=== PATIENT | female | born 1990 | race Caucasian/White ===

== ENCOUNTER → 2018-08-26 10:19 | Outpatient (CLI) | payer MEDICAID, SELFPAY ==
[2018-08-26 10:24] LABS: Microscopic, Urine URINE MICROSCOPIC (MICROSCOPIC)
[2018-08-26 11:04] LABS: Appearance,Urine CLEAR (Clear); Bilirubin,Urine Negative (Negative); Blood, Urine Negative (Negative); Color,Urine YELLOW (Yellow); Glucose,Urine (UA) Negative (Negative); Ketones,Urine Negative (Negative); Leukocyte Esterase,Urine Negative (Negative); Nitrate,Urine Negative (Negative); Protein,Urine Negative (Negative); Urobilinogen,Urine 0.2 EU/dl (0.2)
[2018-08-26 11:23] LABS: Basophils % 0.5 % (0.1-2.0); Eosinophils # 0.2 K/mm3 (0.0-0.4); Eosinophils % 2.8 % (0.1-12.0); Hematocrit 41.9 % (37.0-47.0); Hemoglobin 14.5 g/dL (12.2-16.2); Lymphocytes # 1.7 K/mm3 (0.7-4.5); Lymphocytes % 20.1 % (10-50); Mean Corpuscular HGB Conc 34.7 g/dL (31.8-35.4); Mean Corpuscular Hemoglobin 32.9 pg (27.0-31.2); Mean Corpuscular Volume 94.8 fl (81-99); Mean Platelet Volume 7.8 fl (7.4-10.4); Monocytes # 0.6 K/mm3 (0.1-1.0); Monocytes % 7.8 % (1.7-9.3); Neutrophils # 5.6 K/mm3 (1.8-7.8); Neutrophils % 68.8 % (37.0-80.0); Platelet Count 266 K/mm3 (142-424); Red Blood Count 4.42 M/mm3 (4.20-5.40); Red Cell Distribution Width 13.1 % (11.5-17.5); White Blood Count 8.2 K/mm3 (4.8-10.8)
[2018-08-26 11:28] LABS: Bacteria,Urine Trace /lpf; Squamous Epithelial Cell,Urine Occasional #/hpf (0-5); WBC,Urine Occasional #/hpf (0-3)
[2018-08-26 12:32] LABS: Alanine Aminotransferase 33 U/L (12-78); Albumin Level 4.3 gm/dL (3.4-5.0); Albumin/Globulin Ratio 1.3 (1.1-1.8); Alkaline Phosphatase 79 U/L (46-116); Anion Gap 13.9 mEq/L (5-15); Aspartate Amino Transferase 13 U/L (15-37); Bilirubin,Total 0.4 mg/dL (0.2-1.0); Blood Urea Nitrogen 10 mg/dL (7-18); Calcium 9.1 mg/dL (8.5-10.1); Carbon Dioxide 28 mmol/L (21.0-32.0); Chloride 104 mmol/L (98-107); Creatinine,Serum 0.77 mg/dL (0.55-1.02); Estimated Glomerular Filt Rate 91 ml/min (>60); GFR (African American) 110 ML/MIN (>60); Globulin 3.3 gm/dl (1.3-3.2); Glucose 88 mg/dL (74-106); Potassium 3.9 mmoL/L (3.5-5.1); Sodium 142 mmol/L (136-145); Total Protein,Serum 7.6 gm/dL (6.4-8.2)
[2018-08-26 15:37] LABS: HCG Qualitative, Serum Negative (Negative)
== END ==
PROVIDERS: Visit Provider Obstetrics & Gynecology
DX: Z01.818 Encounter for other preprocedural examination (principal); Z30.2 Encounter for sterilization
CPT/HCPCS: 36415; 80053; 81001; 84703; 85025

== ENCOUNTER → 2019-10-02 09:50 | Outpatient (CLI) | payer MEDICAID, SELFPAY ==
[2019-10-02 10:14] LABS: Basophils # 0.1 K/mm3 (0-0.2); Basophils % 1.2 % (0.1-2.0); Eosinophils # 0.4 K/mm3 (0.0-0.4); Eosinophils % 4.8 % (0.1-12.0); Hematocrit 43.6 % (37.0-47.0); Hemoglobin 14.8 g/dL (12.2-16.2); Lymphocytes # 1.6 K/mm3 (0.7-4.5); Lymphocytes % 21.9 % (10-50); Mean Corpuscular Hemoglobin 33.3 pg (27.0-31.2); Mean Corpuscular Volume 98.1 fl (81-99); Monocytes # 0.5 K/mm3 (0.1-1.0); Monocytes % 6.6 % (1.7-9.3); Neutrophils # 4.9 K/mm3 (1.8-7.8); Neutrophils % 65.6 % (37.0-80.0); Platelet Count 207 K/mm3 (142-424); Red Blood Count 4.45 M/mm3 (4.20-5.40); Red Cell Distribution Width 13.3 % (11.5-17.5); White Blood Count 7.5 K/mm3 (4.8-10.8)
[2019-10-02 10:43] LABS: Chloride 106 mmol/L (98-107); HCG Qualitative, Serum Negative (Negative); Potassium 4.8 mmoL/L (3.5-5.1); Sodium 141 mmol/L (136-145)
[2019-10-02 10:45] LABS: Alanine Aminotransferase 32 U/L (12-78); Alkaline Phosphatase 63 U/L (38-126); Aspartate Amino Transferase 29 U/L (14-36); Bilirubin,Total 0.7 mg/dl (0.2-1.3); Blood Urea Nitrogen 11 mg/dl (7-17); Estimated Glomerular Filt Rate 86 ml/min (>60); GFR (African American) 104 ML/MIN (>60)
[2019-10-02 10:46] LABS: Albumin Level 4.5 g/dl (3.5-5.0); Albumin/Globulin Ratio 1.7 (1.1-1.8); Anion Gap 13.8 mEq/L (5-15); Calcium 9.7 mg/dl (8.4-10.2); Carbon Dioxide 26 mmol/L (22.0-30.0); Globulin 2.6 g/dL (1.3-3.2); Glucose 63 mg/dl (74-100); Total Protein,Serum 7.1 g/dl (6.3-8.2)
[2019-10-02 11:10] LABS: Coronavirus 19 IgG Antibody Negative (Negative); Coronavirus 19 IgM Antibody Negative (Negative)
== END ==
PROVIDERS: Visit Provider Obstetrics & Gynecology
DX: Z01.818 Encounter for other preprocedural examination (principal)
CPT/HCPCS: 36415; 80053; 84703; 85025; 86328

== ENCOUNTER 2019-10-03 06:33 | Day surgery (SDC) | payer MEDICAID, SELFPAY ==
--- NOTE | 2019-10-01 09:54 | SUR.PREOP ---
10/01/2019 @ 0954--PHONE CALL MADE TO PATIENT. PATIENT UNDERSTANDS THAT LAB WORK AND COVID TESTING NEEDS TO BE COMPLETED @ 945 ON 10/02/2019. PATIENT UNDERSTANDS IF LAB WORK AND COVID-19 TESTS ARE NOT COMPLETED BY 12PM ON THAT DATE, THE SURGERY SCHEDULED WILL BE CANCELLED AND RESCHEDULED FOR ANOTHER TIME.
[2019-10-03] VITALS (16 sets, daily range): BP systolic 108–145; BP diastolic 62–83; PULSE 72–98; RESP 12–19; TEMP 36.2–43; O2SAT 91–98; BMI 33.4
--- NOTE | 2019-10-03 10:02 | P.PN_ITS ---
[facility] Anesthesia Checklist - Structural Data Admitted From: Home Planned Operative Procedure/s: d/c estephanie go Consent for Planned Operative Procedure(s) Verified: Yes - Additional verifications Anesthesia Reactions: No Hx Blood Transfusions: No Blood Transfusion Reaction: No - Airway Assessment C-Spine Mobility Assessed: Yes TMJ Mobility Assessed: Yes Dentition: Good Dentition - Neurological Assessment Level of Consciousness: Awake, Alert, Appropriate - Anesthesia Plan Anesthesia Risk discussed: Yes Anesthesia Plan: Verified ASA Class: II Anesthesia Type: General [facility] History I have reviewed the patient's past medical history: Yes Medical History: Denies:: Cancer, Diabetes Mellitus Type 1, Diabetes Mellitus Type 2, Internal Pacemaker, MRSA, Seizures *Have you ever received a pneumonia vaccine?: No *Have you received a flu vaccine this season?: No Other Medical History: Denies: Blood Transfusion Reaction Anesthesia experience/problems:: none Other Surgeries: Yes: Tubal Ligation. No: Pacemaker Amputation: No Fractures: No - *Social History Educational Level: Completed GED/General Educational Development Smoking Status: Current every day smoker Tobacco Type: cigarettes # Packs/Day (cigarettes): 1 Alcohol Intake: never Alcohol Intake Frequency:: a few times a week Substance Use Type: denies use *Occupational Status:: unemployed Housing: house Household Members: children *Travel in the last 8 weeks: None Family Hx:: Asthma, Diabetes, Kidney Disease
--- NOTE | 2019-10-03 10:47 | HMH.OPNOTE ---
Date of procedure: 10/03/19 Pre-op Diagnosis:: Heavy menstrual bleeding, dysfunctional uterine bleeding, failed medical management with IUD Post-op Diagnosis:: same Procedure performed:: D&C Hysteroscopy, failed novasure endometrial ablation Surgeon:: Faby Sims MD IT OPERATIONS MANAGER:: Tremaine Castillo Anesthesia: GETA Estimated blood loss (mL): 15 Operative findings:: grossly normal endometrium, abnormal cavity shape c/w bicornuate uterus Operative note:: The patient was taken to the operating room and general anesthesia was administered. She was prepped/draped in lithotomy position. The anterior lip of the cervix was grasped with a single tooth tenaculum and the cervix was dilated with Nguyen dilators of serially increasing size until the external os was able to accomodate the Myosure hysteroscope. The hysteroscope was advanced through the cervix and into the uterine cavity, which was distended with LR. Once the uterus was sufficiently distended, the cavity was evaluated and revealed no lesions such as polyps or fibroids, but did seem to have an abnormal shape, consistent with a bicornuate uterus. The hysteroscope was removed from the uterus and endometrial sampling obtained by sharp curettage. The uterine cavity sounded to a length of 5cm. The Novasure was inserted through the cervix and expanded to fit the width of the uterus, with a width of 3.4cm. The cavity assessment was not successful, and the novasure was removed to inspect the uterus with the hysteroscope. No perforations were observed. The novasure was re-introduced into the uterus with a second unsuccessful cavity assessment. The hysteroscope was introduced into the uterus again and no perforations were observed, however the bicornuate appearance of the uterus appeared more pronounced. The hysteroscope was removed from the uterus and all instruments removed from the vagina. The tenaculum site was hemostatic. All sponge/lap/needle/instrument counts correct x2. Total EBL: 15 cc. The patient was taken out of lithotomy position, extubated and taken to the PACU in stable condition. Condition: stable Disposition: PACU Specimens:: endometrial curettings Complications:: failure of novasure to deploy due to cavity assessment
--- NOTE | 2019-10-03 10:54 | HMH.ANESI ---
[facility] Anesthesia Record Part I Intake, IV Amount: 1,500 Estimated blood loss (mL): 10 Urine output (mL): 350 Blood Pressure: 145/75 SaO2: 98 Pulse Rate: 98 Respiratory Rate: 12 Temperature: 98.5 F Patient is:: Awake, Stable Stable to PACU at:: 10:50
--- NOTE | 2019-10-03 17:20 | HMH.ANESII ---
[facility] Anesthesia Record Part II Discharge Time: 11:20 Destination: [facility] PACU nurse assessment reviewed?: Yes Patient Condition:: Good Anesthesia Complications:: None Swallowing reflex intact?: Yes Cyanosis?: No Blood Pressure: 116/63 Pulse Rate: 93 Temperature: 97.4 F Mental Status: Alert & Oriented Pain level:: 6 Nausea and/or vomitting:: None Intake, IV Amount: 1,200
== END 2019-10-03 12:10 | disposition home or self-care (01) ==
LOC: OR 06:34
PROVIDERS: PCP Family Medicine; Visit Provider Obstetrics & Gynecology
PROC: 0U5B8ZZ Destruction of Endometrium, Via Natural or Artificial Opening Endoscopic (ICD-10-PCS; CPT 58563; principal; 2019-10-03 09:00)
DX: N93.8 Other specified abnormal uterine and vaginal bleeding (principal); Q51.3 Bicornate uterus; Z98.51 Tubal ligation status; Z88.0 Allergy status to penicillin; Z72.0 Tobacco use
CPT/HCPCS: 58563; 96374; J2405

== ENCOUNTER → 2019-12-05 10:04 | Outpatient (CLI) | payer MEDICAID, SELFPAY ==
[2019-12-05 10:55] LABS: Basophils # 0.1 K/mm3 (0-0.2); Basophils % 0.7 % (0.1-2.0); Eosinophils # 0.3 K/mm3 (0.0-0.4); Hematocrit 43.8 % (37.0-47.0); Hemoglobin 15.1 g/dL (12.2-16.2); Lymphocytes # 1.7 K/mm3 (0.7-4.5); Lymphocytes % 21.9 % (10-50); Mean Corpuscular HGB Conc 34.5 g/dL (31.8-35.4); Mean Corpuscular Hemoglobin 33.9 pg (27.0-31.2); Mean Corpuscular Volume 98.1 fl (81-99); Mean Platelet Volume 8.6 fl (7.4-10.4); Monocytes # 0.4 K/mm3 (0.1-1.0); Monocytes % 5.1 % (1.7-9.3); Neutrophils # 5.2 K/mm3 (1.8-7.8); Neutrophils % 68.4 % (37.0-80.0); Platelet Count 261 K/mm3 (142-424); Red Blood Count 4.47 M/mm3 (4.20-5.40); Red Cell Distribution Width 13.1 % (11.5-17.5); White Blood Count 7.5 K/mm3 (4.8-10.8)
[2019-12-05 12:08] LABS: Chloride 103 mmol/L (98-107); Sodium 139 mmol/L (136-145)
[2019-12-05 12:09] LABS: Potassium 4.5 mmoL/L (3.5-5.1)
[2019-12-05 12:11] LABS: Alanine Aminotransferase 22 U/L (12-78); Albumin Level 4.4 g/dl (3.5-5.0); Albumin/Globulin Ratio 1.7 (1.1-1.8); Alkaline Phosphatase 57 U/L (38-126); Anion Gap 13.5 mEq/L (5-15); Aspartate Amino Transferase 26 U/L (14-36); Bilirubin,Total 0.4 mg/dl (0.2-1.3); Blood Urea Nitrogen 12 mg/dl (7-17); Carbon Dioxide 27 mmol/L (22.0-30.0); Estimated Glomerular Filt Rate 100 ml/min (>60); GFR (African American) 121 ML/MIN (>60); Globulin 2.6 g/dL (1.3-3.2)
[2019-12-05 12:12] LABS: Calcium 9.4 mg/dl (8.4-10.2); Glucose 73 mg/dl (74-100)
[2019-12-05 12:15] LABS: HCG Qualitative, Serum Negative (Negative)
[2019-12-05 14:23] LABS: Coronavirus 19 IgG Antibody Negative (Negative); Coronavirus 19 IgM Antibody Negative (Negative)
== END ==
PROVIDERS: Visit Provider Obstetrics & Gynecology
DX: Z01.818 Encounter for other preprocedural examination (principal); N92.0 Excessive and frequent menstruation with regular cycle; N93.8 Other specified abnormal uterine and vaginal bleeding; Z98.51 Tubal ligation status
CPT/HCPCS: 36415; 80053; 84703; 85025; 86328

== ENCOUNTER 2019-12-08 12:26 | Observation (INO) | payer MEDICAID, SELFPAY ==
[2019-12-03 13:54] VITALS: BMI 32.4
[2019-12-08] VITALS (29 sets, daily range): BP systolic 99–156; BP diastolic 51–85; PULSE 73–95; RESP 12–20; TEMP 36.3–43; O2SAT 91–100
--- NOTE | 2019-12-08 06:58 | P.PN_ITS ---
[facility] Anesthesia Checklist - Patient Identification Patient Identification: Arm Band, Verbal (Name & ) - Structural Data Admitted From: Home Planned Operative Procedure[facility] Cons[facility] for Planned Operative Procedure(s) Verified: Yes Verified Documents: Surgical Consent - NPO Status Verified Time NPO: 00:00 - Chart Verification Results Verified: CBC, BMP - Additional verifications Patient : No Anesthesia Reactions: No Hx Blood Transfusions: No Blood Transfusion Reaction: No - Airway Assessment C-Spine Mobility Assessed: Yes TMJ Mobility Assessed: Yes Dentition: Good Dentition - Neurological Assessment Level of Consciousness: Awake, Alert, Appropriate, Follows Commands Hx Seizures: No Numbness or tingling in extremities: No - Anesthesia Plan Anesthesia Risk discussed: Yes Anesthesia Plan: Verified ASA Class: II Anesthesia Type: General [facility] History I have reviewed the patient's past medical history: Yes Medical History: Denies:: Cancer, Diabetes Mellitus Type 1, Diabetes Mellitus Type 2, Internal Pacemaker, MRSA, Seizures *Have you ever received a pneumonia vaccine?: No *Have you received a flu vaccine this season?: No Other Medical History: Denies: Blood Transfusion Reaction Comment:: obesity Anesthesia experience/problems:: no prior complications Other Surgeries: Yes: Dilation and Curettage, Tubal Ligation. No: Pacemaker Amputation: No Fractures: No - *Social History Last grade of school completed: Some college Smoking Status: Current every day smoker Tobacco Type: cigarettes # Packs/Day (cigarettes): 1 Alcohol Intake: never Alcohol Intake Frequency:: a few times a week Substance Use Type: denies use *Occupational Status:: unemployed Housing: house Household Members: significant other *Travel in the last 8 weeks: None Family Hx:: Anemia, Asthma, Coronary Artery Disease, Diabetes, Hyperlipidemia, Hypertension, Kidney Disease, Stroke, Thyroid Disorder, Substance abuse
--- NOTE | 2019-12-08 09:44 | SUR.OPER ---
0926-family updated at this time
--- NOTE | 2019-12-08 11:07 | HMH.ANESI ---
[facility] Anesthesia Record Part I Intake, IV Amount: 1,300 Estimated blood loss (mL): 100 Urine output (mL): 200 Blood Products used (#): none Blood Pressure: 133/66 SaO2: 96 Pulse Rate: 89 Respiratory Rate: 16 Temperature: 98.6 F Patient is:: Awake, Stable Stable to PACU at:: 11:03
[2019-12-08 11:12] LABS: Appearance,Urine/Cath CLEAR (Clear); Blood, Urine/Cath TRACE-I (Negative); Color,Urine/Cath YELLOW (Yellow); Glucose,Urine/Cath (UA) Negative (Negative); Ketones,Urine/Cath Negative (Negative); Leukocyte Esterase,Cath Negative (Negative); Nitrate,Cath Negative (Negative); Protein,Urine/Cath TRACE (Negative); Specific Gravity, Urine/Cath >= 1.030 (1.005-1.030); Urobilinogen,Cath 0.2 EU/dl (0.2)
[2019-12-08 11:13] LABS: Microscopic,Cath URINE MICROSCOPIC (MICROSCOPIC)
[2019-12-08 11:16] LABS: Bilirubin,Cath 1+ (Negative)
--- NOTE | 2019-12-08 12:15 | PC.NURSE ---
Pt transported to OB department RN x2 at this time, per Pt bed, bed in lowest position, wheels locked, siderails x2 in place, mask on Pt during transport r/t covid-19 protocol. O2 applied to Pt per nasal cannula 2LPM for low o2 saturation. Pt resating comfortably at this time. 1220 visitor at the bedside
--- NOTE | 2019-12-08 12:17 | P.OP_ITS ---
Date of procedure: 12/08/19 Pre-op Diagnosis:: 1. HMB 2. DUB 3. Failed endometrial ablation Post-op Diagnosis:: same Procedure performed:: Laparoscopic assisted vaginal hysterectomy Surgeon:: Faby Sims MD Webfed Offset Press Operator(s):: Xavi Barcenas MD BEER BREWER:: Parth Nguyen Anesthesia: GETA Estimated blood loss (mL): 100 Operative findings:: grossly normal uterus, fallopian tubes and ovaries Operative note:: The patient was taken to the operating room and general anesthesia was administered without difficulty. She was prepped and draped in lithotomy position. A Humi uterine manipulator was placed and attention turned to the abdomen. The verees needle was inserted through a 11mm umbilical incision and the abdomen was insufflated with CO2 gas. A 11mm trocar was placed under direct visualization without complication. 11mm incisions were made in the right and left lower quadrant and trocars inserted under direct visualization. A 5mm incision was made above the pubic symphisis and a trocar inserted under visualization. The round ligaments were identified and transected. The anterior lip of the broad ligament was dissected medially on both sides and the bladder flap was created digitally. The posterior leaf of the broad ligament was dissected until the ureters were able to be identified on either side and noted to be free of the forthcoming adnexal pedicles. Infundibulopelvic ligaments were transected using the harmonic scalpel on either side, with excellent hemostasis noted. The fallopian tubes on either side were clamped transected and removed; the specimens were set aside for pathology. The uterine arteries were skeletonized on either side, and were clamped/transected using the harmonic scalpel, with excellent hemostasis. The bladder flap was further bluntly dissected off the lower uterine segment with excellent hemostasis and without injury to the bladder. The cardinal and uterosacral ligaments were clamped transected and suture ligated on both sides. At this time, the abdomen was evacuated of gas and instruments removed from the trocars, and attention turned to the vagina. The cervix was grasped and lidocaine 1% with epi was injected for dissection and hemostasis. The cervical mucosa was incised circumferentially with a scalpel and dissected posteriorly until the colpotomy was successfully made in posterior fornix. The anterior colpotomy was then made without complication. The cardinal and uterosacral ligaments were clamped, transected and suture ligated until the uterus as successfully removed. A running, locked 2-0 vicryl was sewn around the posterior vaginal mucosa vaginal mucosa. The peritoneum was closed with 2-0 PDS. The vaginal cuff was closed with 0 Vicryl running/locked suture. Attention was again turned to the abdomen, and it was insufflated with gas again. The pelvis was copiously irrigated with a solution of sterile water. Timoteo was placed over the vaginal cuff and ovarian pedicles. The cuff was hemostatic. All pedicles were reexamined and remained hemostatic. All instruments were removed from the patient's abdomen and the gas was evacuated. The incisions were closed with 4-0 monocryl. The patient tolerated the procedure well; sponge/lap/needle and instrument counts were correct ?2. She was taken to the recovery room awake in stable condition. Estimated blood loss: 100 cc. Condition: stable Disposition: PACU Complications:: none
--- NOTE | 2019-12-08 13:04 | P.CONPHA_ITS ---
[facility] Pharmacy VTE Monitoring - Patient Demographics Admission date: 12/08/19 Report Date: 12/08/19 Time: 13:04 Allergies/Adverse Reactions: Patient Allergies Penicillins Allergy (Verified 12/08/19 06:20) Unknown allergy reaction Height: 1.7 m Weight: 93.894 kg Patient Problems: Current Active Problems S/P laparoscopic assisted vaginal hysterectomy (LAVH) (Acute) Heavy menstrual period (Acute) DUB (dysfunctional uterine bleeding) (Acute) History of tubal ligation (Acute) - Prophylaxis VTE Prophylaxis Ordered?: Yes Types of VTE Prophylaxis: IPCS Thigh High Location of Applied Device: Bilateral Lower Extremeties - VTE Diagnosis Confirmed Treatment or plan recommended: Continue Current Treatment
--- NOTE | 2019-12-08 14:51 | PC.NURSE ---
Pt asleep at this time, No needs voiced
--- NOTE | 2019-12-08 16:19 | PC.NURSE ---
Pt resting in bed at this time, with no complaints, 20g IV infusing well in the Rt hand, no s/s of infiltration, LR going at 125ml/hr, wiley catheter patent at bedside. BLT lungs clear to auscultation. Bowel sounds present in all 4 quadrants. Pt denies passing any gas. ICPs thigh-high present on BLT lower extremities, no edema present in any extremity. Pt rates pain at a 3 on 0-10 pain scale. Pt tolerating oral intake well. Abdomen soft and slightly tender to touch. Skin warm and pink. 4 incisions on abdomen covered with T&T, CDI
--- NOTE | 2019-12-08 17:23 | HMH.ANESII ---
[facility] Anesthesia Record Part II Discharge Time: 12:11 Destination: Obstetric PACU nurse assessment reviewed?: Yes Patient Condition:: Good Anesthesia Complications:: None Swallowing reflex intact?: Yes Cyanosis?: No Blood Pressure: 114/68 Pulse Rate: 92 Temperature: 98.2 F Mental Status: Alert & Oriented Pain level:: 5 Nausea and/or vomitting:: None Intake, IV Amount: 0
--- NOTE | 2019-12-08 17:50 | PC.NURSE ---
Pt up to the bathroom at this time x1 assistance, pt able to void 500ml, Pt walked back to bed. Pt tolerated well, bed linens changed and trash taken out. Dr. Sims at the bedside making rounds to see Pt
--- NOTE | 2019-12-08 19:40 | PC.NURSE ---
CHICKEN NOODLE SOUP,CRACKERS AND A CRANBERRY JUICE PROVIDED.PT DENIES ANY NEEDS OR CONCERNS AT THIS TIME.REPORTS SHE WAS FINE PAIN ZIMMERMAN BEFORE GETTING UP TO BATHROOM.STATES PAIN HAS EASIED NOW WITH GETTING BACK IN BED. MAYBE A 4-5 ON PAIN SCALE OF 0-10.DENIES ANY NEED FOR PAIN MEDICINE
--- NOTE | 2019-12-08 21:12 | PC.NURSE ---
MEDICATED WITH 10 MG OXYCODONE AND 650MG TYLENOL FOR PAIN OF 7 ON SCALE OF 0-10.PT HAD JUST RETUNED FROM BATHROOM AFTER DISCONNECTING HERSLEF FROM HER SEQ.HOSES.PT AMBULATING WELL.DECREASED FLUIDS TO 75ML/HR WHERE PT HAVING TO GET UP SO MUCH AND SHE IS DRINKING PLENTY OF WATER.HER URINE IS CLEAR WHITE AND HAS WENT A TOTAL OF 1350 THIS SHIFT.OFFERED SOMETHING ELSE TO SNACK ON AND SHE SAID MAYBE SOME ICE CREAM.WILL PROVIDE SOME
--- NOTE | 2019-12-08 22:40 | PC.NURSE ---
ANOTHER BAG LR HUNG AT THIS TIME.PT HAD JUST RETURNED FROM BATHROOM AND VOIDED ANOTHER 250 CLEAR WHITE URINE.NO NEEDS OR CONCERNS VOICED.NO NEEDS FOR PAIN MEDICINE VOICED,REPORTS PAIN TOLERABLE NOW.
--- NOTE | 2019-12-09 | PC.NURSE ---
PT HAD BEEN DOSING AND HER PUMP STARTED TO BEEP.TUBING WAS CRIMPED,ADJUSTED THIS.SITE UNREMARKABLE IN RIGHT HAND.V/S WAS TAKEN.PT REPORTED NEEDING TO GO TO BATHROOM,PT VOIDED 400ML OF LIGHT YELLOW URINE AND REPORTED A SMALL AMT OF VAG.BLEEDING.ANABELL.TORADOL 30MG IVP GIVEN,PT REPORTED A CRAMPING PAIN 4 OUT OF 0-10.FLAGLY ALSO HUNG.SOME CHOCOLATE ICE CREAM AND A XUAN MIST PROVIDED REQ. NO OTHER NEEDS OR CONCERNS VOICED
--- NOTE | 2019-12-09 02:14 | PC.NURSE ---
PT SLEEPING ON HER RIGHT SIDE,RESP.EVEN AND UNLABORED
[2019-12-09 04:10] VITALS: BP 90/60; PULSE 71; RESP 16; TEMP 36.8; O2SAT 97
--- NOTE | 2019-12-09 04:27 | PC.NURSE ---
PT WAS EASILY AROUSED AND V/S AND REASSESSMENT DONE.NO ACUTE CHANGES FROM PREVIOUS ASSESSMENT.LUNGS CLEAR TO ASCULTATE,NO DRAINAGE TO 4 LAP SITES.NORMAL BOWEL SOUNDS X4 QUADS,PT REPORTS PASSING SOME FLATUS.PT HAS VOIDED FREQUENTLY TONIGHT WITH OVER 3000ML OUTPUT OF CLEAR YELLOW URINE,SCANT VAG.BLEEDING.HAS BEEN MEDICATED 2X WITH OXYCODONE AND TYLENOL AND ANABELL TORADOL ONCE,WILL RECIEVE ANOTHER DOSE OF TORADOL AT 6AM AND WILL SALINE LOCK HER
--- NOTE | 2019-12-09 06:05 | PC.NURSE ---
PT WAS RESTING IN BED.ANABELL.TORADOL WAS GIVEN AND IV SALINE LOCKED AFTER THAT.PT GOING TO BATHROOM AGAIN
--- NOTE | 2019-12-09 06:12 | PC.NURSE ---
LAB HERE FOR H/H AND BMP
[2019-12-09 06:30] LABS: Hematocrit 37.3 % (37.0-47.0); Hemoglobin 12.4 g/dL (12.2-16.2)
--- NOTE | 2019-12-09 06:55 | PC.NURSE ---
BREAKFAST TRAY TAKEN IN AND SET UP.PT WITHOUT NEEDS OR CONCERNS
[2019-12-09 07:01] LABS: Chloride 106 mmol/L (98-107)
[2019-12-09 07:02] LABS: Potassium 4.2 mmoL/L (3.5-5.1); Sodium 139 mmol/L (136-145)
[2019-12-09 07:04] LABS: Blood Urea Nitrogen 8 mg/dl (7-17); Creatinine Clearance Estimated 179 mL/min (50-200); Estimated Glomerular Filt Rate 100 ml/min (>60); GFR (African American) 121 ML/MIN (>60)
[2019-12-09 07:05] LABS: Anion Gap 8.2 mEq/L (5-15); Calcium 8.5 mg/dl (8.4-10.2); Carbon Dioxide 29 mmol/L (22.0-30.0); Glucose 100 mg/dl (74-100)
--- NOTE | 2019-12-09 07:05 | PC.NURSE ---
report received from cheikh heaton RN
--- NOTE | 2019-12-09 07:32 | PC.NURSE ---
WENT IN TO PERFORM ASSESSMENT AND PATIENT WAS SLEEPING SOUNDLY. RESP. EQUAL AND UNLABORED. NO DISTRESS NOTED
[2019-12-09 08:00] VITALS: BP 114/60; PULSE 85; RESP 18; TEMP 36.9; O2SAT 100
--- NOTE | 2019-12-09 08:05 | PC.NURSE ---
ASSESSMENT PERFORMED AT THIS TIME. LUNGS CTA IN ALL LUNG HILL AND ABD SOUNDS ACTIVE X4, PATIENT STATES SHE IS PASSING GAS, BUT NO BM YET. RATES PAIN A 4/10 BUT DENIES NEED FOR MEDICATION. PT IS REQUESTING GAS MEDICATION THIS AM. PEEING WITHOUT DIFFICULTY AND AMBULATING GOOD. 4 LAP SITES NOTED AND ALL C/D/I. SCANT VAGINAL BLEEDING. PT ALERT X4. WILL CONTINUE TO MONITOR.
--- NOTE | 2019-12-09 08:32 | PC.NURSE ---
GAS MEDICINE GIVEN AT THIS TIME FOR GAS PAINS/ NO CURRENT NEEDS
--- NOTE | 2019-12-09 09:22 | PC.NURSE ---
DR. FRANKLIN AT BEDSIDE.
--- NOTE | 2019-12-09 09:40 | HMH.DCSUM ---
General - General Admission date:: 12/08/19 Discharge date: 12/09/19 Hospital Course Hospital Course: Admitted for surgical management of HMB, DUB after failed endometrial ablation s/p LAVH Postop course uneventful Ambulating and voiding without difficulty Tolerating a regular diet Postop labs normal Ready for discharge on POD #1 Stable condition Objective Vital signs: Temp Pulse Resp BP Pulse Ox 98.5 F 85 18 114/60 100 12/09/19 08:00 12/09/19 08:00 12/09/19 08:00 12/09/19 08:00 12/09/19 08:00 Narrative: CONSTITUTIONAL: no acute distress HEENT: mucous membranes moist PULMONARY: breathing unlabored without audible wheezes CV: no tachycardia or visible JVD; normal LE peripheral pulses ABD: soft, ND; appropriately tender but no rebound/guarding SKIN: incisions intact with no drainage, erythema or induration EXT: no edema LEs NEURO: alert/oriented, no altered mental status PSYCH: appropriate mood and demeanor without anxiety/depression Results Labs on day of discharge: Labs from last 24 hours 12/09/19 12/09/19 12/08/19 06:11 06:11 10:13 Hgb 12.4 Hct 37.3 Sodium 139 Potassium 4.2 Chloride 106 Carbon Dioxide 29 Anion Gap 8.2 BUN 8 Creatinine 0.70 Estimated Creat Clear 179 Estimated GFR 100 Est GFR ( Amer) 121 Glucose 100 Calcium 8.5 Urine Color Yellow Urine Appearance Clear Urine pH 6.0 Ur Specific Eidson >= 1.030 Urine Protein Trace Urine Glucose (UA) Negative Urine Ketones Negative Urine Blood Trace-i Urine Nitrate Negative Urine Bilirubin 1+ A Urine Urobilinogen 0.2 Ur Leukocyte Esterase Negative Urine WBC 3-5 Ur Squamous Epith Cells 3-5 DS: Diagnosis - Discharge Diagnosis (1) Heavy menstrual period Status: Acute (2) DUB (dysfunctional uterine bleeding) Status: Acute (3) History of tubal ligation Status: Acute (4) S/P laparoscopic assisted vaginal hysterectomy (LAVH) Status: Acute Discharge Plan - Patient Discharge Instructions ACTIVITY: Limited activity DIET: regular diet Additional Instructions: NO HEAVY, NO STRENUOUS ACTIVITY AND NOTHING IN THE VAGINA FOR 6 WEEKS. Patient Instructions: DI for Surgical Site Infection, DI for Postoperative Pain, Hysterectomy -- Laparoscopic Surgery, Preventing the Spread of Coronavirus Discharge Instructions - Follow up Plan Follow up with: Faby Sims MD [Staff Physician] - 12/23/19 10:45 am Disposition: Home, Self-Longterm Medications: Home Medications Medication Instructions Recorded Confirmed Type ibuprofen 800 mg tablet 800 mg PO BID 07/29/18 12/08/19 History Ibuprofen [Motrin 400mg 800 mg PO Q6HP PRN #30 tab 12/09/19 Rx tablet] Oxycodone HCl [OxyIR 5mg tablet] 5 mg PO Q4HP PRN #30 tab 12/09/19 Rx Prescriptions/Medication Reconciliation: New Oxycodone HCl [OxyIR 5mg tablet] 5 mg PO Q4HP PRN #30 tab PRN Reason: Moderate To Severe Pain Ibuprofen [Motrin 400mg tablet] 800 mg PO Q6HP PRN #30 tab PRN Reason: Mild Pain Acetaminophen [Acetaminophen 325mg tab] 650 mg PO Q4HP PRN tablet PRN Reason: Mild Pain Continued ibuprofen 800 mg tablet 800 mg PO BID - Problem Reconciliation Problems Reviewed?: Yes
--- NOTE | 2019-12-09 10:30 | PC.NURSE ---
DRESSING REMOVED AND BANDIADS APPLIED PER PROTOCOL WOUND EDUCATION PROVIDED AND PT V/U. PT TOLERATED WELL
--- NOTE | 2019-12-09 10:30 | PC.NURSE ---
DISCHARGE EDUCATION GIVEN TO PATIENT AT THIS TIME. THOROUGHLY EDUCATED PATIENT ON ALL TOPICS. PT V/U.
--- NOTE | 2019-12-09 11:18 | PC.NURSE ---
PT WALKED OFF UNIT AT THIS TIME WITH [facility]FF [facility]. GOT INTO PRIVATE VEHICLE.
== END 2019-12-09 11:18 | disposition home or self-care (01) ==
LOC: OB 12:27
PROVIDERS: Admitting Provider Obstetrics & Gynecology; PCP Family Medicine; Visit Provider Obstetrics & Gynecology
PROC: 0UT9FZZ Resection of Uterus, Via Natural or Artificial Opening With Percutaneous Endoscopic Assistance (ICD-10-PCS; CPT 58550; principal; 2019-12-08 08:00)
DX: N93.8 Other specified abnormal uterine and vaginal bleeding (principal); N92.0 Excessive and frequent menstruation with regular cycle
CPT/HCPCS: 58550; 36415; 80048; 81001; 85014; 85018; 96374; G0378; J1956; J2405

== ENCOUNTER → 2020-06-02 12:48 | Outpatient (CLI) | payer MEDICAID, SELFPAY ==
--- NOTE | 2020-06-02 12:48 | US_ITS ---
PROCEDURE: US BREAST RT COMPLETE CLINICAL INDICATION: US Right Breast- nodules Right breast tenderness COMPARISON: No exams were available for comparison FINDINGS: No discrete cystic or solid nodule is demonstrated. IMPRESSION: Unremarkable right breast ultrasound Dictated by: Néstor Groves MD 06/07/2020 17:30 Néstor Groves MD in [place] 06/07/2020 17:30
[2020-06-02 16:12] LABS: Thyroid Stimulating Hormone 0.93 uIU/mL (0.465-4.68)
[2020-06-04 09:32] LABS: Prolactin 6.2 ng/mL (4.8-23.3)
[2020-06-04 10:41] LABS: FSH 5.4 mIU/mL (.); LH 5.1 mIU/mL (.)
== END ==
PROVIDERS: PCP Family Medicine; Visit Provider Obstetrics & Gynecology
DX: N63.10 Unspecified lump in the right breast, unspecified quadrant (principal); R09.89 Other specified symptoms and signs involving the circulatory and respiratory systems; N92.6 Irregular menstruation, unspecified
CPT/HCPCS: 36415; 76641; 82670; 83001; 83002; 84146; 84443

== ENCOUNTER → 2021-02-17 11:17 | Outpatient (CLI) | payer MEDICAID, SELFPAY ==
[2021-02-17 12:30] LABS: Triiodothryronine (T3) Uptake 30 % (23.5-40.5)
[2021-02-17 12:31] LABS: Free Thyroxine Index 2.6 ug/dL (5.93-13.13); T4 (Thyroxine) 8.5 ug/dl (5.53-11.0)
[2021-02-17 12:44] LABS: Thyroid Stimulating Hormone 0.87 uIU/mL (0.465-4.68)
== END ==
PROVIDERS: Visit Provider Obstetrics & Gynecology
DX: Z01.419 Encounter for gynecological examination (general) (routine) without abnormal findings (principal)
CPT/HCPCS: 36415; 84436; 84443; 84479

== ENCOUNTER → 2022-05-30 10:16 | Outpatient (CLI) | payer MEDICAID, SELFPAY ==
[2022-05-30 11:57] LABS: Thyroid Stimulating Hormone 0.86 uIU/mL (0.465-4.68)
[2022-05-31 10:15] LABS: Estradiol 53.8 pg/mL (.); FSH 6.5 mIU/mL (.); LH 6.3 mIU/mL (.); Progesterone 0.2 ng/mL (.)
== END ==
PROVIDERS: PCP Family Medicine; Visit Provider Obstetrics & Gynecology
DX: Z01.419 Encounter for gynecological examination (general) (routine) without abnormal findings (principal)
CPT/HCPCS: 36415; 82670; 83001; 83002; 84144; 84443